=== PATIENT | male | born 1990 ===

== ENCOUNTER 2016-09-05 22:48 | Emergency (ER) | payer SELFPAY ==
[2016-09-05 22:52] VITALS: BP 136/89; PULSE 116; RESP 20; TEMP 98; O2SAT 100
--- NOTE | 2016-09-06 01:45 | ED PDOC ---
HPI: Psych/Substance Abuse Time Seen by Provider: 09/06/16 01:42 Chief Complaint (Nursing): Dental Pain Chief Complaint (Provider): [facility] eval ED Caveat: Intoxicated Additional Complaint(s): 26yo M in ED according to by [facility] and EMS-was seen falling onto floor in a building on camera. pt with bleeding in mouth. pt very intoxicated with slurred speech and unstable gait. Past Medical History Reviewed: Historical Data, Nursing Documentation, Vital Signs Vital Signs: Last Vital Signs Temp 98 F 09/05/16 22:49 Pulse 116 H 09/05/16 22:49 Resp 20 09/05/16 22:49 BP 136/89 09/05/16 22:49 Pulse Ox 100 09/05/16 22:49 - Medical History PMH: No Chronic Diseases - Family History Family History: States: Unknown Family Hx - Home Medications Home Medications: Ambulatory Orders Medication Instructions Recorded Amoxicillin/Clavulanate [Augmentin 1 tab PO BID #20 tab 10/21/15 500 MG-125 MG] - Allergies Allergies/Adverse Reactions: Allergies Allergy/AdvReac Type Severity Reaction Status Date / Time No Known Allergies Allergy Verified 10/21/15 22:40 Review of Systems ROS Statement: Except As Marked, All Systems Reviewed And Found Negative Review Of Systems: ROS cannot be obtained secondary to pt's inabilty to answer questions. Physical Exam - Reviewed Nursing Documentation Reviewed: Yes Vital Signs Reviewed: Yes - Physical Exam Appears: Positive for: Non-toxic, No Acute Distress. Negative for: Well Head Exam: Positive for: ATRAUMATIC, NORMAL INSPECTION, NORMOCEPHALIC Skin: Positive for: Normal Color, Warm, DRY ENT: Positive for: Other (mouth: bleeding noted in oral caviity. no source of bleeding noted. dentition intact. ) Cardiovascular/Chest: Positive for: Regular Rate, Rhythm Respiratory: Positive for: CNT, Normal Breath Sounds Neurologic/Psych: Positive for: Alert, Oriented - ECG O2 Sat by Pulse Oximetry: 100 - Progress ED Course And Treament: intoxication-dx and pt will get CT of head. for bleeding in oral cavity-pt told to gargle NS and hydrogen peroxide. Re-evaluation Time: 01:46 Condition: Improved (no further bleeding in oral cavity. ) Medical Decision Making Medical Decision Making: head ct FINDINGS: Brain: Mild atrophy. No intracranial hemorrhage. No mass. No edema. Ventricles: No hydrocephalus. Bones/joints: No acute fracture. Sinuses: Mild mucosal thickening of LEFT ethmoid sinus. Mastoid air cells: No mastoid effusion. Orbits: Unremarkable as visualized. IMPRESSION: 1. No intracranial hemorrhage. 2. Incidental/non-acute findings are described above. pt is clinically sober and ready for d.c at this time. Disposition - Clinical Impression Clinical Impression: Head injury, Alcohol intoxication Counseled Patient/Family Regarding: Studies Performed, Diagnosis, Need For Followup - Disposition Disposition: Routine/Home Disposition Time: 05:25 Condition: STABLE Instructions: Alcohol Intoxication (ED)
--- NOTE | 2016-09-06 08:11 | CT ---
PROCEDURE: CT HEAD WITHOUT CONTRAST. HISTORY: head injury ETOH COMPARISON: None available. TECHNIQUE: Axial computed tomography images were obtained through the head/brain without intravenous contrast. Radiation dose: Total exam DLP = 829 mGy-cm. This CT exam was performed using one or more of the following dose reduction techniques: Automated exposure control, adjustment of the mA and/or kV according to patient size, and/or use of iterative reconstruction technique. FINDINGS: HEMORRHAGE: No intracranial hemorrhage. BRAIN: No mass effect or edema. No atrophy or chronic microvascular ischemic changes. VENTRICLES: Unremarkable. No hydrocephalus. CALVARIUM: Unremarkable. PARANASAL SINUSES: Unremarkable as visualized. No significant inflammatory changes. MASTOID AIR CELLS: Unremarkable as visualized. No inflammatory changes. OTHER FINDINGS: None. IMPRESSION: Normal CT of the Head.
== END 2016-09-06 05:30 | disposition home or self-care (01) ==
LOC: H.ER 22:48
DX: S09.90XA Unspecified injury of head, initial encounter (principal); W18.30XA Fall on same level, unspecified, initial encounter; Y92.89 Other specified places as the place of occurrence of the external cause; F10.129 Alcohol abuse with intoxication, unspecified; Y90.9 Presence of alcohol in blood, level not specified
CPT/HCPCS: 70450; 82948; 99281; G0480